=== PATIENT | male | born 1950 | race Caucasian/White ===

== ENCOUNTER 2022-02-07 13:18 | Inpatient (IN) | payer OTHER, BC ==
[2022-02-07 14:34] LABS: BASO % 0.9 % (0-2.0); EOS % 0.2 % (0-4.5); HEMATOCRIT 17.8 % (35.4-49); LYMPH % 7.9 % (8-40); MCH 24.6 pg (25.7-33.7); MCHC 30.3 g/dl (32.0-35.9); MEAN CELL VOLUME 81.4 fl (80-96); MEAN PLT VOLUME 8.6 fl (7.5-11.1); MONO % 5.9 % (3.8-10.2); NEUT % 85.1 % (42.8-82.8); RBC 2.19 M/mm3 (4.00-5.60); RDW 18.9 % (11.9-15.9); WHITE BLOOD COUNT 13.3 K/mm3 (4.0-10.0)
[2022-02-07 14:35] LABS: PLATELET COUNT 1175 10^3/uL (134-434)
[2022-02-07 14:36] LABS: HEMOGLOBIN 5.4 GM/dL (11.7-16.9)
[2022-02-07 14:59] LABS: CALCIUM 9.1 mg/dL (8.5-10.1)
[2022-02-07 15:00] LABS: ALBUMIN 3.6 g/dl (3.4-5.0); BLOOD UREA NITROGEN 57.6 mg/dL (7-18)
[2022-02-07 15:03] LABS: CREATININE 2.1 mg/dL (0.55-1.3)
[2022-02-07 15:05] LABS: BILIRUBIN,TOTAL 0.4 mg/dL (0.2-1); TOT PROT 6.4 g/dl (6.4-8.2)
[2022-02-07] MEDS ORDERED: SODIUM CHLORIDE 0.9% 500 ML INFUS.BAG IV ONE (15:42)
[2022-02-07] MEDS ORDERED: ACETAMINOPHEN 1000 MG/100 ML BAG IVPB PRN (16:15)
[2022-02-07] MEDS: DEXTROSE 5%-NORMAL SALINE 1,000 ML IV SCH (17:10)
[2022-02-07] MEDS: PANTOPRAZOLE SODIUM 40 MG VIAL IVPUSH SCH (22:05)
[2022-02-08 08:53] LABS: MCH 27.5 pg (25.7-33.7); MEAN CELL VOLUME 83.2 fl (80-96); MEAN PLT VOLUME 8.1 fl (7.5-11.1); PLATELET COUNT 842 10^3/uL (134-434); RDW 17.9 % (11.9-15.9)
[2022-02-08 09:18] LABS: HEMOGLOBIN 6.6 GM/dL (11.7-16.9)
[2022-02-08 09:24] LABS: CALCIUM 7.8 mg/dL (8.5-10.1)
[2022-02-08 09:25] LABS: BLOOD UREA NITROGEN 52.6 mg/dL (7-18); MAGNESIUM 2.6 mg/dL (1.8-2.4)
[2022-02-08 09:28] LABS: CREATININE 1.8 mg/dL (0.55-1.3)
[2022-02-08 09:29] LABS: TOT PROT 5.4 g/dl (6.4-8.2)
[2022-02-08 09:30] LABS: IRON SERUM 61 ug/dL (50-175)
[2022-02-08 09:31] LABS: TOTAL IRON BINDING CAPACITY 321 ug/dL (250-450)
[2022-02-08] MEDS: PANTOPRAZOLE SODIUM 40 MG VIAL IVPUSH SCH ×2 (10:06→22:32)
[2022-02-08 14:06] LABS: BASO % 0.7 % (0-2.0); EOS % 0.7 % (0-4.5); HEMATOCRIT 20.7 % (35.4-49); LYMPH % 10.9 % (8-40); MCH 26.9 pg (25.7-33.7); MCHC 32.5 g/dl (32.0-35.9); MEAN CELL VOLUME 82.8 fl (80-96); MEAN PLT VOLUME 8.2 fl (7.5-11.1); MONO % 9.3 % (3.8-10.2); NEUT % 78.4 % (42.8-82.8); PLATELET COUNT 905 10^3/uL (134-434)
[2022-02-08 14:23] LABS: HEMOGLOBIN 6.7 GM/dL (11.7-16.9)
[2022-02-08 20:11] LABS: BASO % 1.2 % (0-2.0); EOS % 1.4 % (0-4.5); HEMATOCRIT 25.3 % (35.4-49); LYMPH % 13.5 % (8-40); MCH 27.4 pg (25.7-33.7); MCHC 31.7 g/dl (32.0-35.9); MEAN CELL VOLUME 86.3 fl (80-96); MEAN PLT VOLUME 8.2 fl (7.5-11.1); MONO % 8.8 % (3.8-10.2); NEUT % 75.1 % (42.8-82.8); PLATELET COUNT 905 10^3/uL (134-434); RBC 2.93 M/mm3 (4.00-5.60); RDW 17.4 % (11.9-15.9); WHITE BLOOD COUNT 12.6 K/mm3 (4.0-10.0)
[2022-02-08] MEDS: DEXTROSE 5%-NORMAL SALINE 1,000 ML IV SCH ×2 (22:31→23:59)
[2022-02-08] MEDS: ROSUVASTATIN CA 5 MG TABLET PO SCH (22:32)
[2022-02-09] MEDS: PANTOPRAZOLE SODIUM 40 MG VIAL IVPUSH SCH ×2 (09:48→21:41)
[2022-02-09 12:11] VITALS: BMI 34.1
[2022-02-09] MEDS: DEXTROSE 5%-NORMAL SALINE 1,000 ML IV SCH (13:27)
[2022-02-09 14:02] LABS: BASO % 1.2 % (0-2.0); EOS % 2.6 % (0-4.5); HEMATOCRIT 24.5 % (35.4-49); LYMPH % 9.5 % (8-40); MCH 27.6 pg (25.7-33.7); MCHC 32.7 g/dl (32.0-35.9); MEAN CELL VOLUME 84.3 fl (80-96); MEAN PLT VOLUME 8.3 fl (7.5-11.1); MONO % 8.7 % (3.8-10.2); PLATELET COUNT 904 10^3/uL (134-434); RDW 17.6 % (11.9-15.9); WHITE BLOOD COUNT 12.1 K/mm3 (4.0-10.0)
[2022-02-09 14:10] LABS: INR 1.21 (0.83-1.09)
[2022-02-09 14:30] LABS: CALCIUM 8.3 mg/dL (8.5-10.1)
[2022-02-09 14:31] LABS: BLOOD UREA NITROGEN 28.6 mg/dL (7-18)
[2022-02-09 14:34] LABS: CREATININE 1.5 mg/dL (0.55-1.3)
[2022-02-09 17:40] LABS: URINE APPEARANCE CLEAR; URINE BILIRUBIN NEGATIVE (NEGATIVE); URINE COLOR YELLOW; URINE GLUCOSE (UA) NEGATIVE (NEGATIVE); URINE KETONE NEGATIVE (NEGATIVE); URINE LEUK ESTERASE NEGATIVE (NEGATIVE); URINE NITRITE NEGATIVE (NEGATIVE); URINE PROTEIN TRACE (NEGATIVE); URINE UROBILINOGEN 0.2 mg/dL (0.2-1.0)
[2022-02-09] MEDS: ARTIFICIAL TEARS (POLYVINYL ALCOHOL) OPTH DROPS OU PRN ×2 (18:43→21:41)
[2022-02-09] MEDS: ROSUVASTATIN CA 5 MG TABLET PO SCH (21:41)
[2022-02-10] MEDS: DEXTROSE 5%-NORMAL SALINE 1,000 ML IV SCH ×3 (04:02→21:49)
[2022-02-10] MEDS: PANTOPRAZOLE SODIUM 40 MG VIAL IVPUSH SCH ×2 (09:55→21:46)
[2022-02-10] MEDS: ARTIFICIAL TEARS (POLYVINYL ALCOHOL) OPTH DROPS OU PRN ×2 (09:55→22:03)
[2022-02-10 10:13] LABS: HEMATOCRIT 23.9 % (35.4-49); HEMOGLOBIN 7.6 GM/dL (11.7-16.9); MCH 27.1 pg (25.7-33.7); MCHC 31.9 g/dl (32.0-35.9); MEAN CELL VOLUME 85.1 fl (80-96); MEAN PLT VOLUME 8.4 fl (7.5-11.1); PLATELET COUNT 848 10^3/uL (134-434); RBC 2.81 M/mm3 (4.00-5.60); RDW 18.1 % (11.9-15.9); WHITE BLOOD COUNT 11.4 K/mm3 (4.0-10.0)
[2022-02-10 10:56] LABS: BLOOD UREA NITROGEN 24.2 mg/dL (7-18); CALCIUM 8.3 mg/dL (8.5-10.1); MAGNESIUM 2.7 mg/dL (1.8-2.4)
[2022-02-10 11:00] LABS: CREATININE 1.3 mg/dL (0.55-1.3)
[2022-02-10] MEDS ORDERED: PEG 3350/NA SULF BICARB CL/KCL 4000 ML SOLN.RECON PO ONE ×2 (13:00→17:00)
[2022-02-10] MEDS ORDERED: BISACODYL 5 MG TABLET.DR (FP) PO ONE ×2 (16:00→20:00)
[2022-02-10] MEDS: ROSUVASTATIN CA 5 MG TABLET PO SCH (22:00)
[2022-02-11 07:32] LABS: BASO % 0.8 % (0-2.0); EOS % 1.8 % (0-4.5); HEMATOCRIT 23.9 % (35.4-49); HEMOGLOBIN 7.9 GM/dL (11.7-16.9); LYMPH % 11.8 % (8-40); MCH 27.6 pg (25.7-33.7); MCHC 32.9 g/dl (32.0-35.9); MONO % 11.4 % (3.8-10.2); NEUT % 74.2 % (42.8-82.8); PLATELET COUNT 608 10^3/uL (134-434); RBC 2.85 M/mm3 (4.00-5.60); RDW 18.8 % (11.9-15.9); WHITE BLOOD COUNT 11.5 K/mm3 (4.0-10.0)
[2022-02-11 07:35] LABS: INR 1.28 (0.83-1.09); PROTHROMBIN TIME (PATIENT) 14.8 SEC (9.7-13.0)
[2022-02-11 07:54] LABS: CALCIUM 7.4 mg/dL (8.5-10.1)
[2022-02-11 07:55] LABS: BLOOD UREA NITROGEN 15.5 mg/dL (7-18)
[2022-02-11 07:58] LABS: CREATININE 1.2 mg/dL (0.55-1.3)
[2022-02-11] MEDS: PANTOPRAZOLE SODIUM 40 MG VIAL IVPUSH SCH ×2 (09:13→21:34)
[2022-02-11] MEDS: ARTIFICIAL TEARS (POLYVINYL ALCOHOL) OPTH DROPS OU PRN ×2 (09:13→21:34)
[2022-02-11] MEDS: DEXTROSE 5%-NORMAL SALINE 1,000 ML IV SCH ×2 (11:37→17:38)
[2022-02-11] MEDS ORDERED: ACETAMINOPHEN 325 MG TABLET (FP) PO ONE (17:30)
[2022-02-11] MEDS: ROSUVASTATIN CA 5 MG TABLET PO SCH (21:34)
[2022-02-12 06:42] LABS: CALCIUM 7.9 mg/dL (8.5-10.1)
[2022-02-12 06:43] LABS: ALBUMIN 2.8 g/dl (3.4-5.0); BLOOD UREA NITROGEN 15.2 mg/dL (7-18)
[2022-02-12 06:46] LABS: CREATININE 1.4 mg/dL (0.55-1.3)
[2022-02-12 06:47] LABS: TOT PROT 5.3 g/dl (6.4-8.2)
[2022-02-12 06:48] LABS: BILIRUBIN,TOTAL 1.1 mg/dL (0.2-1)
[2022-02-12 07:11] LABS: HEMATOCRIT 26.1 % (35.4-49); HEMOGLOBIN 8.9 GM/dL (11.7-16.9); MCH 28.8 pg (25.7-33.7); MCHC 34.1 g/dl (32.0-35.9); MEAN CELL VOLUME 84.3 fl (80-96); MEAN PLT VOLUME 8.1 fl (7.5-11.1); PLATELET COUNT 512 10^3/uL (134-434); RBC 3.09 M/mm3 (4.00-5.60); RDW 18.4 % (11.9-15.9); WHITE BLOOD COUNT 12.4 K/mm3 (4.0-10.0)
[2022-02-12] MEDS: PANTOPRAZOLE SODIUM 40 MG VIAL IVPUSH SCH ×2 (10:40→22:49)
[2022-02-12] MEDS ORDERED: IRON SUCROSE INJECTION 300 MG in SODIUM CHLORIDE 235 ML IVPB ONE (13:15)
[2022-02-12] MEDS: CLINDAMYCIN 900 MG PREMIX IVPB 900 MG/50 ML BAG IVPB SCH ×2 (19:12→22:49)
[2022-02-12] MEDS: ACETAMINOPHEN 325 MG TABLET (FP) PO PRN (20:37)
[2022-02-12] MEDS: ROSUVASTATIN CA 5 MG TABLET PO SCH (22:49)
[2022-02-12] MEDS: DEXTROSE 5%-NORMAL SALINE 1,000 ML IV SCH (22:50)
[2022-02-13] MEDS: ACETAMINOPHEN 325 MG TABLET (FP) PO PRN (02:40)
[2022-02-13] MEDS: CLINDAMYCIN 900 MG PREMIX IVPB 900 MG/50 ML BAG IVPB SCH ×2 (03:52→09:17)
[2022-02-13] MEDS: PANTOPRAZOLE SODIUM 40 MG VIAL IVPUSH SCH (09:17)
[2022-02-13 09:24] LABS: HEMATOCRIT 22.1 % (35.4-49); MCH 27.4 pg (25.7-33.7); MCHC 29.9 g/dl (32.0-35.9); MEAN PLT VOLUME 8.1 fl (7.5-11.1); PLATELET COUNT 308 10^3/uL (134-434); RBC 2.41 M/mm3 (4.00-5.60); WHITE BLOOD COUNT 6.4 K/mm3 (4.0-10.0)
[2022-02-13 09:47] LABS: MEAN CELL VOLUME 91.5 fl (80-96)
[2022-02-13 09:50] LABS: HEMOGLOBIN 6.6 GM/dL (11.7-16.9)
[2022-02-13] MEDS: DEXTROSE 5%-NORMAL SALINE 1,000 ML IV SCH ×2 (12:53→23:12)
[2022-02-13] MEDS: VANCOMYCIN/WATER FOR INJ (PEG) 1,000 MG/200 ML BAG IVPB SCH (17:15)
[2022-02-13] MEDS: ROSUVASTATIN CA 5 MG TABLET PO SCH (23:13)
[2022-02-13] MEDS: PANTOPRAZOLE 40 MG TABLET PO SCH (23:13)
[2022-02-14] MEDS ORDERED: ACETAMINOPHEN 1000 MG/100 ML BAG IVPB ONE (00:53)
[2022-02-14] MEDS: ACETAMINOPHEN 325 MG TABLET (FP) PO PRN ×3 (04:17→21:17)
[2022-02-14] MEDS: VANCOMYCIN/WATER FOR INJ (PEG) 1,000 MG/200 ML BAG IVPB SCH ×2 (07:35→16:49)
[2022-02-14 08:39] LABS: HEMOGLOBIN 8.7 GM/dL (11.7-16.9); MCHC 33.6 g/dl (32.0-35.9); MEAN CELL VOLUME 83.3 fl (80-96); MEAN PLT VOLUME 8.5 fl (7.5-11.1); PLATELET COUNT 288 10^3/uL (134-434); RBC 3.11 M/mm3 (4.00-5.60); RDW 18.1 % (11.9-15.9); WHITE BLOOD COUNT 10.4 K/mm3 (4.0-10.0)
[2022-02-14 08:57] LABS: CALCIUM 7.3 mg/dL (8.5-10.1)
[2022-02-14 09:01] LABS: CREATININE 1.5 mg/dL (0.55-1.3)
[2022-02-14] MEDS: PANTOPRAZOLE 40 MG TABLET PO SCH ×2 (09:36→21:18)
[2022-02-14] MEDS ORDERED: IRON SUCROSE INJECTION 300 MG in SODIUM CHLORIDE 235 ML IVPB ONE (12:46)
[2022-02-14] MEDS: DEXTROSE 5%-NORMAL SALINE 1,000 ML IV SCH (16:48)
[2022-02-14] MEDS: FLUTICASONE PROP 0.05% 16 GM NASAL SPRAY NS SCH (18:14)
[2022-02-14] MEDS ORDERED: HEPARIN INFUSION - 25,000 UNITS/500 ML INFUS.BAG IVPB SCH (18:30)
[2022-02-14] MEDS ORDERED: HEPARIN NA (PORCINE) 5,000 UNITS/ML 1ML VIAL IVPUSH ONE (18:45)
[2022-02-14] MEDS ORDERED: HEPARIN NA (PORCINE) 5,000 UNITS/ML 1ML VIAL IVPUSH PRN (18:45)
[2022-02-14] MEDS: HEPARIN INFUSION - 25,000 UNITS/500 ML INFUS.BAG IVPB SCH (18:54)
[2022-02-14 19:24] LABS: BASO % 0.7 % (0-2.0); EOS % 0.4 % (0-4.5); HEMATOCRIT 26.7 % (35.4-49); HEMOGLOBIN 8.7 GM/dL (11.7-16.9); LYMPH % 4.7 % (8-40); MCH 27.4 pg (25.7-33.7); MCHC 32.7 g/dl (32.0-35.9); MEAN CELL VOLUME 83.8 fl (80-96); MONO % 7.9 % (3.8-10.2); NEUT % 86.3 % (42.8-82.8); PLATELET COUNT 312 10^3/uL (134-434); RBC 3.18 M/mm3 (4.00-5.60); WHITE BLOOD COUNT 9.6 K/mm3 (4.0-10.0)
[2022-02-14 19:48] LABS: INR 1.35 (0.83-1.09); PROTHROMBIN TIME (PATIENT) 15.6 SEC (9.7-13.0)
[2022-02-14 19:50] LABS: ACTIVATED PTT 36.5 SECONDS (25.2-36.5)
[2022-02-14] MEDS: ROSUVASTATIN CA 5 MG TABLET PO SCH (21:18)
[2022-02-15] MEDS: HEPARIN NA (PORCINE) 5,000 UNITS/ML 1ML VIAL IVPUSH PRN (02:19)
[2022-02-15] MEDS: VANCOMYCIN/WATER FOR INJ (PEG) 1,000 MG/200 ML BAG IVPB SCH ×4 (04:37→18:12)
[2022-02-15 08:38] LABS: HEMATOCRIT 27.2 % (35.4-49); MCH 27.3 pg (25.7-33.7); MCHC 32.9 g/dl (32.0-35.9); MEAN CELL VOLUME 82.9 fl (80-96); MEAN PLT VOLUME 9.1 fl (7.5-11.1); PLATELET COUNT 347 10^3/uL (134-434); RBC 3.28 M/mm3 (4.00-5.60); RDW 18.3 % (11.9-15.9); WHITE BLOOD COUNT 9.6 K/mm3 (4.0-10.0)
[2022-02-15 08:55] LABS: BLOOD UREA NITROGEN 15.2 mg/dL (7-18); CALCIUM 7.4 mg/dL (8.5-10.1)
[2022-02-15 08:59] LABS: ACTIVATED PTT 53.5 SECONDS (25.2-36.5); CREATININE 1.4 mg/dL (0.55-1.3); INR 1.32 (0.83-1.09); PROTHROMBIN TIME (PATIENT) 15.2 SEC (9.7-13.0)
[2022-02-15] MEDS: FLUTICASONE PROP 0.05% 16 GM NASAL SPRAY NS SCH (09:25)
[2022-02-15] MEDS: PANTOPRAZOLE 40 MG TABLET PO SCH ×2 (09:25→22:04)
[2022-02-15] MEDS: HEPARIN INFUSION - 25,000 UNITS/500 ML INFUS.BAG IVPB SCH ×2 (15:30→18:46)
[2022-02-15 16:17] LABS: HEMATOCRIT 28.7 % (35.4-49); HEMOGLOBIN 9.4 GM/dL (11.7-16.9); MCH 27.3 pg (25.7-33.7); MCHC 32.6 g/dl (32.0-35.9); MEAN CELL VOLUME 83.8 fl (80-96); MEAN PLT VOLUME 9.7 fl (7.5-11.1); PLATELET COUNT 371 10^3/uL (134-434); RBC 3.42 M/mm3 (4.00-5.60); RDW 18.8 % (11.9-15.9); WHITE BLOOD COUNT 10.9 K/mm3 (4.0-10.0)
[2022-02-15] MEDS: ROSUVASTATIN CA 5 MG TABLET PO SCH (22:04)
[2022-02-15] MEDS: ACETAMINOPHEN 325 MG TABLET (FP) PO PRN (22:04)
[2022-02-16] MEDS: VANCOMYCIN/WATER FOR INJ (PEG) 1,000 MG/200 ML BAG IVPB SCH ×2 (05:13→15:43)
[2022-02-16] MEDS: PANTOPRAZOLE 40 MG TABLET PO SCH ×2 (09:24→21:32)
[2022-02-16] MEDS: FLUTICASONE PROP 0.05% 16 GM NASAL SPRAY NS SCH (09:24)
[2022-02-16 09:38] LABS: HEMOGLOBIN 8.9 GM/dL (11.7-16.9); MCH 27.6 pg (25.7-33.7); MEAN CELL VOLUME 83.6 fl (80-96); MEAN PLT VOLUME 8.9 fl (7.5-11.1); PLATELET COUNT 385 10^3/uL (134-434); RBC 3.23 M/mm3 (4.00-5.60); RDW 18.4 % (11.9-15.9)
[2022-02-16 10:01] LABS: CALCIUM 7.5 mg/dL (8.5-10.1)
[2022-02-16] MEDS: HEPARIN NA (PORCINE) 5,000 UNITS/ML 1ML VIAL IVPUSH PRN ×2 (10:01→18:59)
[2022-02-16 10:03] LABS: BLOOD UREA NITROGEN 13.8 mg/dL (7-18)
[2022-02-16 10:06] LABS: CREATININE 1.3 mg/dL (0.55-1.3)
[2022-02-16] MEDS: HEPARIN INFUSION - 25,000 UNITS/500 ML INFUS.BAG IVPB SCH (13:46)
[2022-02-16] MEDS ORDERED: POTASSIUM CHLORIDE TABS 20 MEQ TABLET.ER (FP) PO ONE (14:00)
[2022-02-16] MEDS: CEFAZOLIN 2 GM in DEXTROSE 5%-WATER - 50 ML IVPB SCH (21:31)
[2022-02-16] MEDS: ROSUVASTATIN CA 5 MG TABLET PO SCH (21:32)
[2022-02-17] MEDS: HEPARIN INFUSION - 25,000 UNITS/500 ML INFUS.BAG IVPB SCH ×2 (02:11→10:01)
[2022-02-17] MEDS: HEPARIN NA (PORCINE) 5,000 UNITS/ML 1ML VIAL IVPUSH PRN (02:22)
[2022-02-17] MEDS: CEFAZOLIN 2 GM in DEXTROSE 5%-WATER - 50 ML IVPB SCH ×3 (02:56→19:30)
[2022-02-17] MEDS: FLUTICASONE PROP 0.05% 16 GM NASAL SPRAY NS SCH (10:03)
[2022-02-17] MEDS: PANTOPRAZOLE 40 MG TABLET PO SCH ×2 (10:04→22:36)
[2022-02-17 11:01] LABS: HEMATOCRIT 28.8 % (35.4-49); HEMOGLOBIN 9.5 GM/dL (11.7-16.9); MCH 27.6 pg (25.7-33.7); MEAN CELL VOLUME 83.6 fl (80-96); MEAN PLT VOLUME 8.8 fl (7.5-11.1); PLATELET COUNT 438 10^3/uL (134-434); RBC 3.44 M/mm3 (4.00-5.60); RDW 19.6 % (11.9-15.9); WHITE BLOOD COUNT 9.8 K/mm3 (4.0-10.0)
[2022-02-17 11:23] LABS: MAGNESIUM 2.3 mg/dL (1.8-2.4)
[2022-02-17 11:26] LABS: CREATININE 1.2 mg/dL (0.55-1.3)
[2022-02-17] MEDS: APIXABAN 5 MG TABLET PO SCH (22:35)
[2022-02-17] MEDS: ROSUVASTATIN CA 5 MG TABLET PO SCH (22:35)
[2022-02-18] MEDS: CEFAZOLIN 2 GM in DEXTROSE 5%-WATER - 50 ML IVPB SCH ×2 (02:50→10:23)
[2022-02-18 10:23] VITALS: BP 122/67; PULSE 80; TEMP 98.2
[2022-02-18] MEDS: FLUTICASONE PROP 0.05% 16 GM NASAL SPRAY NS SCH (10:23)
[2022-02-18] MEDS: PANTOPRAZOLE 40 MG TABLET PO SCH (10:23)
[2022-02-18] MEDS: APIXABAN 5 MG TABLET PO SCH (10:23)
== END 2022-02-18 13:45 | disposition home or self-care (01) | DRG 812 ==
LOC: JER 13:18 → JERBED 15:40 → J7W 20:34
PROVIDERS: ADMIT Family Medicine; ATTEND Family Medicine
PROC: 30233N1 Transfusion of Nonautologous Red Blood Cells into Peripheral Vein, Percutaneous Approach (ICD-10-PCS; principal; 2022-02-07)
PROC: 0DJ08ZZ Inspection of Upper Intestinal Tract, Via Natural or Artificial Opening Endoscopic (ICD-10-PCS; 2022-02-11)
PROC: 0DJD8ZZ Inspection of Lower Intestinal Tract, Via Natural or Artificial Opening Endoscopic (ICD-10-PCS; 2022-02-11)
PROC: B543ZZA Ultrasonography of Right Jugular Veins, Guidance (ICD-10-PCS; 2022-02-17)
PROC: 0JH63XZ Insertion of Tunneled Vascular Access Device into Chest Subcutaneous Tissue and Fascia, Percutaneous Approach (ICD-10-PCS; 2022-02-17)
DX: D64.9 Anemia, unspecified (principal); N17.9 Acute kidney failure, unspecified; I82.621 Acute embolism and thrombosis of deep veins of right upper extremity; N13.30 Unspecified hydronephrosis; R78.81 Bacteremia; I10 Essential (primary) hypertension; I25.10 Atherosclerotic heart disease of native coronary artery without angina pectoris; I95.9 Hypotension, unspecified; E87.6 Hypokalemia; D75.839 Thrombocytosis, unspecified; E66.9 Obesity, unspecified; Z68.34 Body mass index [BMI] 34.0-34.9, adult; N28.1 Cyst of kidney, acquired; K57.90 Diverticulosis of intestine, part unspecified, without perforation or abscess without bleeding; Z98.61 Coronary angioplasty status; K64.8 Other hemorrhoids
CPT/HCPCS: 36415; 36430; 36511; 36558; 71046-TC-FY; 76775-TC; 80048; 80053; 80061; 81003; 82272; 82728; 83036; 83540; 83550; 83735; 84443; 84484; 85025; 85027; 85610; 85730; 86850; 86900; 86901; 86922; 87040; 87186; 93005; 93010; 93306-TC; 93971; 99285-25; C9803-CS; G0480; J1644; J1756; P9038; P9058; U0003; U0005

== ENCOUNTER → 2022-03-30 | Day surgery (SDC) | payer OTHER, BC | END | disposition home or self-care (01) | LOC: JRADIR 10:19 | PROVIDERS: ATTEND Family Medicine | PROC: 02PY03Z Removal of Infusion Device from Great Vessel, Open Approach (ICD-10-PCS; principal; 2022-03-30) | DX: Z45.2 Encounter for adjustment and management of vascular access device (principal) | CPT/HCPCS: 36589 ==

== ENCOUNTER 2022-08-27 15:59 | Inpatient (IN) | payer OTHER, BC ==
[2022-08-27 16:14] VITALS: BMI 33.5
[2022-08-27 18:18] LABS: BASO % 1.1 % (0-2.0); EOS % 0.2 % (0-4.5); HEMATOCRIT 21.6 % (35.4-49); LYMPH % 10.7 % (8-40); MCH 27.3 pg (25.7-33.7); MCHC 31.9 g/dl (32.0-35.9); MEAN CELL VOLUME 85.4 fl (80-96); MEAN PLT VOLUME 8.2 fl (7.5-11.1); MONO % 7.6 % (3.8-10.2); NEUT % 80.4 % (42.8-82.8); PLATELET COUNT 1023 10^3/uL (134-434); RBC 2.54 M/mm3 (4.00-5.60); RDW 15.4 % (11.9-15.9); WHITE BLOOD COUNT 14.1 K/mm3 (4.0-10.0)
[2022-08-27 18:23] LABS: HEMOGLOBIN 6.9 GM/dL (11.7-16.9)
[2022-08-27 18:31] LABS: CHLORIDE 111 mmol/L (98-107); INR 1.56 (0.83-1.09); SODIUM 139 mmol/L (136-145)
[2022-08-27 18:34] LABS: ACTIVATED PTT 30.6 SECONDS (25.2-36.5); ALBUMIN 3.1 g/dl (3.4-5.0); ANION GAP 7 MMOL/L (8-16); CALCIUM 9.3 mg/dL (8.5-10.1); CO2 21 mmol/L (21-32); GLUCOSE,RANDOM 127 mg/dL (74-106); MAGNESIUM 1.2 mg/dL (1.8-2.4)
[2022-08-27 18:37] LABS: CREATININE 1.9 mg/dL (0.55-1.3); SGOT/AST 17 U/L (15-37); SGPT/ALT 15 U/L (13-61)
[2022-08-27 18:39] LABS: BILIRUBIN,TOTAL 0.2 mg/dL (0.2-1)
[2022-08-27 18:40] LABS: ALK PHOS 35 U/L (45-117)
[2022-08-27] MEDS ORDERED: MAGNESIUM SULF 50% (8.12 MEQ/2 ML-1 GM VIAL) IVPB ONE (18:51)
[2022-08-27 18:52] LABS: BLOOD UREA NITROGEN 106.4 mg/dL (7-18)
[2022-08-27] MEDS ORDERED: SODIUM CHLORIDE 0.9% 500 ML INFUS.BAG IV ONE (18:54)
[2022-08-27] MEDS ORDERED: MAGNESIUM SULF 50% (8.12 MEQ/2 ML-1 GM VIAL) ONE (19:48)
[2022-08-28 07:15] LABS: BASO % 0.8 % (0-2.0); EOS % 1.3 % (0-4.5); HEMATOCRIT 22.6 % (35.4-49); HEMOGLOBIN 7.2 GM/dL (11.7-16.9); LYMPH % 15.7 % (8-40); MCH 28.3 pg (25.7-33.7); MEAN CELL VOLUME 88.4 fl (80-96); MEAN PLT VOLUME 8.1 fl (7.5-11.1); MONO % 9.1 % (3.8-10.2); NEUT % 73.1 % (42.8-82.8); PLATELET COUNT 778 10^3/uL (134-434); RBC 2.55 M/mm3 (4.00-5.60); RDW 15.3 % (11.9-15.9)
[2022-08-28 07:41] LABS: CALCIUM 8.4 mg/dL (8.5-10.1)
[2022-08-28 07:42] LABS: ALBUMIN 2.8 g/dl (3.4-5.0); BLOOD UREA NITROGEN 97.6 mg/dL (7-18)
[2022-08-28 07:44] LABS: CREATININE 1.7 mg/dL (0.55-1.3)
[2022-08-28 07:46] LABS: BILIRUBIN,TOTAL 0.4 mg/dL (0.2-1); TOT PROT 5.2 g/dl (6.4-8.2)
[2022-08-28] MEDS ORDERED: FUROSEMIDE 40 MG/4 ML INJECTABLE VIAL IVPUSH ONE (09:34)
[2022-08-28] MEDS ORDERED: FUROSEMIDE 40 MG/4 ML INJECTABLE VIAL ONE (11:03)
[2022-08-28] MEDS ORDERED: MAGNESIUM SULF 50% (8.12 MEQ/2 ML-1 GM VIAL) IVPB ONE (14:15)
[2022-08-28 14:16] LABS: BASO % 1.8 % (0-2.0); EOS % 1.2 % (0-4.5); HEMATOCRIT 26.2 % (35.4-49); HEMOGLOBIN 8.5 GM/dL (11.7-16.9); LYMPH % 12.4 % (8-40); MCH 27.9 pg (25.7-33.7); MCHC 32.4 g/dl (32.0-35.9); MEAN CELL VOLUME 86.3 fl (80-96); MEAN PLT VOLUME 7.7 fl (7.5-11.1); MONO % 9.6 % (3.8-10.2); PLATELET COUNT 883 10^3/uL (134-434); RBC 3.04 M/mm3 (4.00-5.60); RDW 15.1 % (11.9-15.9); WHITE BLOOD COUNT 11.7 K/mm3 (4.0-10.0)
[2022-08-28] MEDS ORDERED: MAGNESIUM 1GM/D5W - 1 GM/100 ML IVPB IVPB ONE (15:14)
[2022-08-29 07:21] LABS: BASO % 1.7 % (0-2.0); EOS % 2.7 % (0-4.5); HEMATOCRIT 23.9 % (35.4-49); HEMOGLOBIN 7.9 GM/dL (11.7-16.9); LYMPH % 16.4 % (8-40); MCH 28.3 pg (25.7-33.7); MCHC 33.2 g/dl (32.0-35.9); MEAN CELL VOLUME 85.5 fl (80-96); MEAN PLT VOLUME 8.1 fl (7.5-11.1); MONO % 11.2 % (3.8-10.2); PLATELET COUNT 810 10^3/uL (134-434); RBC 2.79 M/mm3 (4.00-5.60); RDW 15.5 % (11.9-15.9); WHITE BLOOD COUNT 10.6 K/mm3 (4.0-10.0)
[2022-08-29 07:48] LABS: ALBUMIN 2.9 g/dl (3.4-5.0); CALCIUM 8.7 mg/dL (8.5-10.1)
[2022-08-29 07:49] LABS: MAGNESIUM 2.9 mg/dL (1.8-2.4)
[2022-08-29 07:52] LABS: BILIRUBIN,TOTAL 0.5 mg/dL (0.2-1); CREATININE 1.4 mg/dL (0.55-1.3)
[2022-08-29 07:54] LABS: TOT PROT 5.5 g/dl (6.4-8.2)
[2022-08-29 07:55] LABS: BLOOD UREA NITROGEN 57.6 mg/dL (7-18)
[2022-08-29] MEDS: PANTOPRAZOLE 40 MG TABLET PO SCH (10:01)
[2022-08-29] MEDS: ACETAMINOPHEN 325 MG TABLET (FP) PO PRN (17:23)
[2022-08-30 07:41] LABS: EOS % 1.6 % (0-4.5); HEMATOCRIT 24.7 % (35.4-49); HEMOGLOBIN 8.1 GM/dL (11.7-16.9); LYMPH % 14.4 % (8-40); MCH 28.5 pg (25.7-33.7); MCHC 32.8 g/dl (32.0-35.9); MEAN CELL VOLUME 86.9 fl (80-96); MEAN PLT VOLUME 8.1 fl (7.5-11.1); MONO % 11.8 % (3.8-10.2); NEUT % 71.2 % (42.8-82.8); PLATELET COUNT 889 10^3/uL (134-434); RBC 2.84 M/mm3 (4.00-5.60); RDW 15.5 % (11.9-15.9); WHITE BLOOD COUNT 11.7 K/mm3 (4.0-10.0)
[2022-08-30] MEDS: PANTOPRAZOLE 40 MG TABLET PO SCH (09:49)
[2022-08-31 07:16] LABS: BASO % 1.2 % (0-2.0); EOS % 1.8 % (0-4.5); HEMATOCRIT 25.7 % (35.4-49); HEMOGLOBIN 8.4 GM/dL (11.7-16.9); LYMPH % 12.2 % (8-40); MCH 27.8 pg (25.7-33.7); MCHC 32.5 g/dl (32.0-35.9); MEAN CELL VOLUME 85.5 fl (80-96); MONO % 11.6 % (3.8-10.2); NEUT % 73.2 % (42.8-82.8); PLATELET COUNT 973 10^3/uL (134-434); RBC 3.01 M/mm3 (4.00-5.60); RDW 16.4 % (11.9-15.9); WHITE BLOOD COUNT 10.2 K/mm3 (4.0-10.0)
[2022-08-31 07:39] LABS: CALCIUM 8.6 mg/dL (8.5-10.1)
[2022-08-31 07:40] LABS: ALBUMIN 2.7 g/dl (3.4-5.0)
[2022-08-31 07:42] LABS: CREATININE 1.2 mg/dL (0.55-1.3)
[2022-08-31 07:44] LABS: BILIRUBIN,TOTAL 0.8 mg/dL (0.2-1); TOT PROT 5.5 g/dl (6.4-8.2)
[2022-08-31 08:56] LABS: BLOOD UREA NITROGEN 26.7 mg/dL (7-18)
[2022-08-31] MEDS: PANTOPRAZOLE 40 MG TABLET PO SCH (12:12)
[2022-09-01 07:31] LABS: BASO % 1.2 % (0-2.0); EOS % 2.3 % (0-4.5); HEMATOCRIT 24.8 % (35.4-49); HEMOGLOBIN 8.3 GM/dL (11.7-16.9); LYMPH % 14.6 % (8-40); MCH 28.4 pg (25.7-33.7); MCHC 33.5 g/dl (32.0-35.9); MEAN CELL VOLUME 84.8 fl (80-96); MEAN PLT VOLUME 7.9 fl (7.5-11.1); MONO % 10.7 % (3.8-10.2); NEUT % 71.2 % (42.8-82.8); PLATELET COUNT 854 10^3/uL (134-434); RBC 2.92 M/mm3 (4.00-5.60); RDW 16.1 % (11.9-15.9); WHITE BLOOD COUNT 9.4 K/mm3 (4.0-10.0)
[2022-09-01] MEDS ORDERED: ARTIFICIAL TEARS (POLYVINYL ALCOHOL) OPTH DROPS OU PRN (08:38)
[2022-09-01] MEDS: PANTOPRAZOLE 40 MG TABLET PO SCH ×2 (09:23→21:58)
[2022-09-01] MEDS: CLOPIDOGREL BISULFATE 75 MG TABLET (FP) PO SCH (09:23)
[2022-09-01] MEDS: NEBIVOLOL 5 MG TABLET (FP) PO SCH (09:27)
[2022-09-01] MEDS: MAG HYDROX/AL HYDROX/SIMETH 30 ML UNIT-DOSE CUP PO SCH ×3 (11:00→21:59)
[2022-09-01] MEDS: ROSUVASTATIN CA 5 MG TABLET PO SCH (21:58)
[2022-09-02] MEDS: MAG HYDROX/AL HYDROX/SIMETH 30 ML UNIT-DOSE CUP PO SCH ×4 (06:56→21:49)
[2022-09-02 08:05] LABS: BASO % 1.9 % (0-2.0); HEMATOCRIT 27.2 % (35.4-49); HEMOGLOBIN 8.9 GM/dL (11.7-16.9); LYMPH % 13.8 % (8-40); MCH 27.8 pg (25.7-33.7); MCHC 32.7 g/dl (32.0-35.9); MEAN PLT VOLUME 7.9 fl (7.5-11.1); MONO % 9.2 % (3.8-10.2); NEUT % 72.1 % (42.8-82.8); PLATELET COUNT 1015 10^3/uL (134-434); RDW 16.2 % (11.9-15.9); RETICULOCYTES 5.36 % (0.5-1.5)
[2022-09-02 08:30] LABS: BLOOD UREA NITROGEN 30.6 mg/dL (7-18)
[2022-09-02 08:32] LABS: CREATININE 1.5 mg/dL (0.55-1.3)
[2022-09-02] MEDS: PANTOPRAZOLE 40 MG TABLET PO SCH ×2 (09:33→21:49)
[2022-09-02] MEDS: NEBIVOLOL 5 MG TABLET (FP) PO SCH (09:33)
[2022-09-02] MEDS: CLOPIDOGREL BISULFATE 75 MG TABLET (FP) PO SCH (09:34)
[2022-09-02 15:37] VITALS: RESP 18
[2022-09-02] MEDS: ACETAMINOPHEN 325 MG TABLET (FP) PO PRN (15:47)
[2022-09-02] MEDS: ROSUVASTATIN CA 5 MG TABLET PO SCH (21:49)
[2022-09-03] MEDS: MAG HYDROX/AL HYDROX/SIMETH 30 ML UNIT-DOSE CUP PO SCH (05:26)
[2022-09-03] MEDS ORDERED: ACETAMINOPHEN 325 MG TABLET (FP) PO PRN (06:33)
[2022-09-03] MEDS ORDERED: ARTIFICIAL TEARS (POLYVINYL ALCOHOL) OPTH DROPS OU PRN (06:33)
[2022-09-03] MEDS ORDERED: PANTOPRAZOLE 40 MG TABLET PO SCH (10:00)
[2022-09-03] MEDS ORDERED: CLOPIDOGREL BISULFATE 75 MG TABLET (FP) PO SCH (10:00)
[2022-09-03] MEDS ORDERED: NEBIVOLOL 5 MG TABLET (FP) PO SCH (10:00)
[2022-09-03] MEDS ORDERED: MAG HYDROX/AL HYDROX/SIMETH 30 ML UNIT-DOSE CUP PO SCH (10:15)
[2022-09-03 12:24] LABS: EOS % 2.8 % (0-4.5); HEMATOCRIT 27.6 % (35.4-49); LYMPH % 11.8 % (8-40); MCH 27.9 pg (25.7-33.7); MCHC 32.6 g/dl (32.0-35.9); MEAN CELL VOLUME 85.5 fl (80-96); MEAN PLT VOLUME 7.9 fl (7.5-11.1); NEUT % 74.4 % (42.8-82.8); RBC 3.23 M/mm3 (4.00-5.60); RDW 16.2 % (11.9-15.9); WHITE BLOOD COUNT 12.2 K/mm3 (4.0-10.0)
[2022-09-03 12:32] LABS: PLATELET COUNT 1133 10^3/uL (134-434)
[2022-09-03 14:31] LABS: BLOOD UREA NITROGEN 26.4 mg/dL (7-18); CREATININE 1.4 mg/dL (0.55-1.3); MAGNESIUM 2.9 mg/dL (1.8-2.4)
[2022-09-03 14:36] VITALS: BP 126/61; PULSE 63; TEMP 98.4
[2022-09-03] MEDS ORDERED: ROSUVASTATIN CA 5 MG TABLET PO SCH (22:00)
== END 2022-09-03 16:34 | disposition home or self-care (01) | DRG 378 ==
LOC: JER 15:59 → INTOOBSV 18:26 → JERBED 18:26 → UNDOADMOB 18:26 → JERBED 08-28 17:16 → J4W 08-28 18:28 → JERBED 08-28 18:28 → J4W 08-28 18:28 → OBSVTOIN 08-31 10:56 → J8W 09-02 20:52
PROVIDERS: ADMIT Internal Medicine; ATTEND Family Medicine
PROC: 30233N1 Transfusion of Nonautologous Red Blood Cells into Peripheral Vein, Percutaneous Approach (ICD-10-PCS; 2022-08-28)
PROC: 0DB68ZX Excision of Stomach, Via Natural or Artificial Opening Endoscopic, Diagnostic (ICD-10-PCS; principal; 2022-08-31 13:45)
DX: K25.0 Acute gastric ulcer with hemorrhage (principal); D62 Acute posthemorrhagic anemia; N17.9 Acute kidney failure, unspecified; I25.10 Atherosclerotic heart disease of native coronary artery without angina pectoris; I10 Essential (primary) hypertension; Z86.718 Personal history of other venous thrombosis and embolism; E78.5 Hyperlipidemia, unspecified; R19.5 Other fecal abnormalities; E87.5 Hyperkalemia; E83.42 Hypomagnesemia; D75.839 Thrombocytosis, unspecified; Z95.5 Presence of coronary angioplasty implant and graft; K44.9 Diaphragmatic hernia without obstruction or gangrene
CPT/HCPCS: 0241U-QW; 36415; 36430; 71045-TC-FY; 76775-TC; 80048; 80053; 82272; 82728; 83540; 83550; 83735; 84484; 85025; 85045; 85610; 85730; 86850; 86870; 86900; 86901; 86902; 86922; 88305-TC; 88341-TC; 93005; 93010; 99285-25; G0378; P9058

== ENCOUNTER 2022-11-03 04:44 | Day surgery (SDC) | payer OTHER, BC ==
[2022-11-02 13:35] VITALS: BMI 31.5
[2022-11-03 14:55] VITALS: TEMP 97
[2022-11-03 15:51] VITALS: BP 146/79; PULSE 70; RESP 19
== END 2022-11-03 15:45 | disposition home or self-care (01) ==
LOC: JASU-ENDO 04:44
PROVIDERS: ATTEND Internal Medicine Gastroenterology
PROC: 0DB78ZX Excision of Stomach, Pylorus, Via Natural or Artificial Opening Endoscopic, Diagnostic (ICD-10-PCS; 2022-11-03)
PROC: 0DB68ZX Excision of Stomach, Via Natural or Artificial Opening Endoscopic, Diagnostic (ICD-10-PCS; 2022-11-03)
PROC: 0DB48ZX Excision of Esophagogastric Junction, Via Natural or Artificial Opening Endoscopic, Diagnostic (ICD-10-PCS; principal; 2022-11-03 13:00)
DX: K25.9 Gastric ulcer, unspecified as acute or chronic, without hemorrhage or perforation (principal); K21.00 Gastro-esophageal reflux disease with esophagitis, without bleeding; K29.50 Unspecified chronic gastritis without bleeding; I10 Essential (primary) hypertension
CPT/HCPCS: 88305-TC; 88341-TC; 88342-TC

== ENCOUNTER 2023-03-09 04:25 | Day surgery (SDC) | payer OTHER, BC ==
[2023-03-05 13:34] VITALS: BMI 30.9
[2023-03-09 09:35] VITALS: TEMP 97.7
[2023-03-09 10:00] VITALS: BP 128/71
[2023-03-09 10:19] VITALS: PULSE 63; RESP 20
== END 2023-03-09 10:19 | disposition home or self-care (01) ==
LOC: JASU-ENDO 04:25
PROVIDERS: ATTEND Internal Medicine Gastroenterology
PROC: 0DBL8ZX Excision of Transverse Colon, Via Natural or Artificial Opening Endoscopic, Diagnostic (ICD-10-PCS; 2023-03-09)
PROC: 0DB48ZX Excision of Esophagogastric Junction, Via Natural or Artificial Opening Endoscopic, Diagnostic (ICD-10-PCS; 2023-03-09)
PROC: 0DB78ZX Excision of Stomach, Pylorus, Via Natural or Artificial Opening Endoscopic, Diagnostic (ICD-10-PCS; 2023-03-09)
PROC: 0DB68ZX Excision of Stomach, Via Natural or Artificial Opening Endoscopic, Diagnostic (ICD-10-PCS; 2023-03-09)
PROC: 0DBM8ZX Excision of Descending Colon, Via Natural or Artificial Opening Endoscopic, Diagnostic (ICD-10-PCS; 2023-03-09)
PROC: 0DBL8ZX Excision of Transverse Colon, Via Natural or Artificial Opening Endoscopic, Diagnostic (ICD-10-PCS; 2023-03-09)
PROC: 0DB48ZX Excision of Esophagogastric Junction, Via Natural or Artificial Opening Endoscopic, Diagnostic (ICD-10-PCS; 2023-03-09)
PROC: 0DB78ZX Excision of Stomach, Pylorus, Via Natural or Artificial Opening Endoscopic, Diagnostic (ICD-10-PCS; 2023-03-09)
PROC: 0DB68ZX Excision of Stomach, Via Natural or Artificial Opening Endoscopic, Diagnostic (ICD-10-PCS; 2023-03-09)
PROC: 0DBM8ZX Excision of Descending Colon, Via Natural or Artificial Opening Endoscopic, Diagnostic (ICD-10-PCS; principal; 2023-03-09 08:45)
DX: Z12.11 Encounter for screening for malignant neoplasm of colon (principal); D12.3 Benign neoplasm of transverse colon; D12.4 Benign neoplasm of descending colon; K57.30 Diverticulosis of large intestine without perforation or abscess without bleeding; K20.90 Esophagitis, unspecified without bleeding; K31.7 Polyp of stomach and duodenum; K64.8 Other hemorrhoids; Z87.11 Personal history of peptic ulcer disease; I10 Essential (primary) hypertension
CPT/HCPCS: 88305-TC; 88342-TC

== ENCOUNTER 2024-11-15 11:14 | Inpatient (IN) | payer OTHER, BC ==
[2024-11-15] MEDS ORDERED: ONDANSETRON 4 MG/2 ML VIAL ONE (11:43)
[2024-11-15] MEDS ORDERED: PANTOPRAZOLE SODIUM 40 MG VIAL ONE (11:44)
[2024-11-15 12:00] LABS: HEMOGLOBIN 14.8 GM/dL (11.7-16.9); MCH 28.9 pg (25.7-33.7); MCHC 31.4 g/dl (32.0-35.9); MEAN PLT VOLUME 8.4 fl (7.5-11.1); RBC 5.11 M/mm3 (4.00-5.60); RDW 14.7 % (11.9-15.9); WHITE BLOOD COUNT 21.5 K/mm3 (4.0-10.0)
[2024-11-15] MEDS: SODIUM CHLORIDE 0.9% 1000 ML INFUS.BAG IV ONE ×2 (12:01→12:36)
[2024-11-15] MEDS: ONDANSETRON 4 MG/2 ML VIAL IVPUSH ONE (12:02)
[2024-11-15] MEDS: PANTOPRAZOLE SODIUM 40 MG VIAL IVPUSH ONE (12:02)
[2024-11-15 12:05] LABS: PLATELET COUNT 1124 10^3/uL (134-434)
[2024-11-15 12:16] LABS: INR 1.04 (0.83-1.09)
[2024-11-15 12:19] LABS: ACTIVATED PTT 27.4 SECONDS (25.2-36.5)
[2024-11-15 12:23] LABS: LACTIC ACID 5.4 mmol/L (0.4-2.0)
[2024-11-15 12:27] LABS: CHLORIDE 107 mmol/L (98-107); SODIUM 138 mmol/L (136-145)
[2024-11-15 12:29] LABS: CALCIUM 9.2 mg/dL (8.5-10.1); GLUCOSE,RANDOM 222 mg/dL (74-106)
[2024-11-15 12:30] LABS: ALBUMIN 3.3 g/dl (3.4-5.0); BLOOD UREA NITROGEN 49.1 mg/dL (7-18); CO2 21 mmol/L (21-32); MAGNESIUM 2.2 mg/dL (1.8-2.4)
[2024-11-15 12:33] LABS: CREATININE 1.6 mg/dL (0.55-1.3); SGOT/AST 39 U/L (15-37); SGPT/ALT 20 U/L (13-61)
[2024-11-15 12:34] LABS: ANION GAP 11 mmol/L (4-13); BILIRUBIN,TOTAL 0.6 mg/dL (0.2-1); POTASSIUM 6.7 mmol/L (3.5-5.1); TOT PROT 6.5 g/dl (6.4-8.2)
[2024-11-15 12:36] LABS: ALK PHOS 55 U/L (45-117)
[2024-11-15] MEDS ORDERED: PIPERACILLIN/TAZOB 3.375 GM 3.375 GM/50 ML BAG IVPB ONE ×2 (12:36→12:50)
[2024-11-15] MEDS: PIPERACILLIN/TAZOB 3.375 GM 3.375 GM in DEXTROSE 5%-WATER - 50 ML IVPB ONE (12:52)
[2024-11-15] MEDS: PANTOPRAZOLE SODIUM 80 MG in SODIUM CHLORIDE 100 ML IVPB SCH ×2 (12:52→22:04)
[2024-11-15 12:59] LABS: ANISOCYTOSIS 0; MACROCYTOSIS 1+
[2024-11-15 15:01] LABS: MCH 29.3 pg (25.7-33.7); MCHC 31.6 g/dl (32.0-35.9); MEAN PLT VOLUME 7.7 fl (7.5-11.1); PLATELET COUNT 971 10^3/uL (134-434); RBC 4.09 M/mm3 (4.00-5.60); RDW 14.1 % (11.9-15.9); WHITE BLOOD COUNT 22.2 K/mm3 (4.0-10.0)
[2024-11-15 15:20] LABS: CHLORIDE 112 mmol/L (98-107); SODIUM 143 mmol/L (136-145)
[2024-11-15 15:22] LABS: POTASSIUM 6.3 mmol/L (3.5-5.1)
[2024-11-15 15:23] LABS: ALBUMIN 2.8 g/dl (3.4-5.0); ANION GAP 8 mmol/L (4-13); BLOOD UREA NITROGEN 53.2 mg/dL (7-18); CO2 23 mmol/L (21-32); GLUCOSE,RANDOM 146 mg/dL (74-106)
[2024-11-15 15:26] LABS: CREATININE 1.3 mg/dL (0.55-1.3)
[2024-11-15 15:27] LABS: SGOT/AST 8 U/L (15-37); SGPT/ALT 15 U/L (13-61)
[2024-11-15 15:28] LABS: BILIRUBIN,TOTAL 0.7 mg/dL (0.2-1); TOT PROT 5.2 g/dl (6.4-8.2)
[2024-11-15 15:29] LABS: ALK PHOS 45 U/L (45-117)
[2024-11-15 15:54] LABS: ANISOCYTOSIS 0; MACROCYTOSIS 0
[2024-11-15 17:04] LABS: PH,URINE 5.5 (5.0-8.0); URINE APPEARANCE CLEAR; URINE BILIRUBIN NEGATIVE (NEGATIVE); URINE COLOR YELLOW; URINE GLUCOSE (UA) TRACE (NEGATIVE); URINE KETONE TRACE (NEGATIVE); URINE LEUK ESTERASE NEGATIVE (NEGATIVE); URINE NITRITE NEGATIVE (NEGATIVE); URINE PROTEIN NEGATIVE (NEGATIVE); URINE UROBILINOGEN 0.2 mg/dL (0.2-1.0)
[2024-11-15 17:06] VITALS: BMI 35.3
[2024-11-15] MEDS: LACTATED RINGERS SOLUTION 1,000 ML/1,000 ML INFUS.BAG IV STA (17:45)
[2024-11-15] MEDS: DEXTROSE 50%-WATER 25 GM/50 ML DISP.SYRIN IVPUSH ONE (17:48)
[2024-11-15] MEDS: hydrALAZINE HCL 20 MG/ML VIAL IVPUSH ONE (17:48)
[2024-11-15] MEDS: ONDANSETRON 4 MG/2 ML VIAL IVPUSH PRN (17:48)
[2024-11-15] MEDS: INSULIN REGULAR HUMAN 100 UNITS/ML *VIAL IVPUSH ONE (17:49)
[2024-11-15] MEDS ORDERED: PIPERACILLIN/TAZOB 4.5 GM 4.5 GM/100 ML BAG IVPB SCH (18:00)
[2024-11-15] MEDS ORDERED: PIPERACILLIN/TAZOB 4.5 GM 4.5 GM in DEXTROSE 5%-WATER 100 ML IVPB SCH (18:00)
[2024-11-15] MEDS: PIPERACILLIN/TAZOB 4.5 GM 4.5 GM/100 ML BAG IVPB SCH (18:15)
[2024-11-15] MEDS: OXYMETAZOLINE 0.05% NASAL SOLUTION 15 ML BOTTLE NS PRN (18:15)
[2024-11-15 20:11] LABS: URINE APPEARANCE CLEAR; URINE BILIRUBIN NEGATIVE (NEGATIVE); URINE COLOR YELLOW; URINE GLUCOSE (UA) NEGATIVE (NEGATIVE); URINE KETONE NEGATIVE (NEGATIVE); URINE PROTEIN NEGATIVE (NEGATIVE); URINE UROBILINOGEN 0.2 mg/dL (0.2-1.0)
[2024-11-15 20:12] LABS: URINE LEUK ESTERASE NEGATIVE (NEGATIVE); URINE NITRITE NEGATIVE (NEGATIVE)
[2024-11-15] MEDS: LACTATED RINGERS SOLUTION 1,000 ML/1,000 ML INFUS.BAG IV SCH (21:12)
[2024-11-15] MEDS: CHLORHEXIDINE GLUCONATE 4% CLEANSER FOR DECOLONIZATION TP SCH (21:12)
[2024-11-15] MEDS: MUPIROCIN 2% TOPICAL OINTMENT FOR DECOLONIZATION NS SCH (21:12)
[2024-11-15 21:54] LABS: BASO % 0.2 % (0-2.0); HEMATOCRIT 36.6 % (35.4-49); HEMOGLOBIN 11.9 GM/dL (11.7-16.9); LYMPH % 3.7 % (8-40); MCH 29.3 pg (25.7-33.7); MCHC 32.4 g/dl (32.0-35.9); MEAN CELL VOLUME 90.6 fl (80-96); MEAN PLT VOLUME 7.8 fl (7.5-11.1); MONO % 8.7 % (3.8-10.2); NEUT % 87.4 % (42.8-82.8); PLATELET COUNT 833 10^3/uL (134-434); RBC 4.04 M/mm3 (4.00-5.60); RDW 14.5 % (11.9-15.9); WHITE BLOOD COUNT 19.4 K/mm3 (4.0-10.0)
[2024-11-16] MEDS: LACTATED RINGERS SOLUTION 1,000 ML/1,000 ML INFUS.BAG IV SCH (06:40)
[2024-11-16 07:44] LABS: BASO % 0.5 % (0-2.0); HEMATOCRIT 31.3 % (35.4-49); HEMOGLOBIN 9.9 GM/dL (11.7-16.9); LYMPH % 7.6 % (8-40); MCHC 31.7 g/dl (32.0-35.9); MEAN CELL VOLUME 91.5 fl (80-96); MEAN PLT VOLUME 8.1 fl (7.5-11.1); MONO % 9.2 % (3.8-10.2); NEUT % 82.7 % (42.8-82.8); PLATELET COUNT 752 10^3/uL (134-434); RBC 3.42 M/mm3 (4.00-5.60); RDW 14.3 % (11.9-15.9); WHITE BLOOD COUNT 17.2 K/mm3 (4.0-10.0)
[2024-11-16 08:04] LABS: POTASSIUM 5.1 mmol/L (3.5-5.1)
[2024-11-16 08:08] LABS: CALCIUM 7.9 mg/dL (8.5-10.1)
[2024-11-16 08:09] LABS: ALBUMIN 2.7 g/dl (3.4-5.0); BLOOD UREA NITROGEN 64.5 mg/dL (7-18); MAGNESIUM 1.8 mg/dL (1.8-2.4)
[2024-11-16 08:12] LABS: CREATININE 1.2 mg/dL (0.55-1.3)
[2024-11-16 08:13] LABS: BILIRUBIN,TOTAL 0.4 mg/dL (0.2-1); PHOSPHOROUS 2.4 mg/dL (2.5-4.9); TOT PROT 4.8 g/dl (6.4-8.2)
[2024-11-16] MEDS: ERYTHROMYCIN INJECTION - 250 MG in SODIUM CHLORIDE 250 ML IVPB ONE (10:43)
[2024-11-16] MEDS ORDERED: ERYTHROMYCIN *INJECTION* 500 MG VIAL IVPB ONE ×2 (11:30→18:36)
[2024-11-16 16:59] LABS: BASO % 0.6 % (0-2.0); EOS % 0.1 % (0-4.5); HEMATOCRIT 25.8 % (35.4-49); HEMOGLOBIN 8.4 GM/dL (11.7-16.9); LYMPH % 12.7 % (8-40); MCH 29.9 pg (25.7-33.7); MCHC 32.6 g/dl (32.0-35.9); MEAN CELL VOLUME 91.7 fl (80-96); MEAN PLT VOLUME 7.5 fl (7.5-11.1); MONO % 8.5 % (3.8-10.2); NEUT % 78.1 % (42.8-82.8); PLATELET COUNT 654 10^3/uL (134-434); RBC 2.82 M/mm3 (4.00-5.60); RDW 14.6 % (11.9-15.9); WHITE BLOOD COUNT 13.6 K/mm3 (4.0-10.0)
[2024-11-16] MEDS ORDERED: OXYMETAZOLINE 0.05% NASAL SOLUTION 15 ML BOTTLE NS PRN (18:36)
[2024-11-16] MEDS ORDERED: MUPIROCIN 2% TOPICAL OINTMENT FOR DECOLONIZATION NS SCH (22:00)
[2024-11-16] MEDS ORDERED: CHLORHEXIDINE GLUCONATE 4% CLEANSER FOR DECOLONIZATION TP SCH (22:00)
[2024-11-17] MEDS: PIPERACILLIN/TAZOB 4.5 GM 4.5 GM/100 ML BAG IVPB SCH (04:10)
[2024-11-17] MEDS: PANTOPRAZOLE SODIUM 80 MG in SODIUM CHLORIDE 100 ML IVPB SCH (05:33)
[2024-11-17 08:49] LABS: MCH 29.8 pg (25.7-33.7); MCHC 32.5 g/dl (32.0-35.9); MEAN CELL VOLUME 91.7 fl (80-96); MEAN PLT VOLUME 7.9 fl (7.5-11.1); PLATELET COUNT 619 10^3/uL (134-434); RBC 2.29 M/mm3 (4.00-5.60); RDW 14.4 % (11.9-15.9); WHITE BLOOD COUNT 10.6 K/mm3 (4.0-10.0)
[2024-11-17 08:53] LABS: EOS % 0.8 % (0-4.5); HEMATOCRIT 20.8 % (35.4-49); LYMPH % 13.1 % (8-40); MCH 30.2 pg (25.7-33.7); MCHC 33.5 g/dl (32.0-35.9); MEAN CELL VOLUME 90.2 fl (80-96); MEAN PLT VOLUME 7.8 fl (7.5-11.1); NEUT % 77.1 % (42.8-82.8); PLATELET COUNT 598 10^3/uL (134-434); RBC 2.31 M/mm3 (4.00-5.60); RDW 14.4 % (11.9-15.9); WHITE BLOOD COUNT 10.6 K/mm3 (4.0-10.0)
[2024-11-17 09:06] LABS: HEMOGLOBIN 6.8 GM/dL (11.7-16.9)
[2024-11-17 09:11] LABS: POTASSIUM 4.3 mmol/L (3.5-5.1)
[2024-11-17 09:19] LABS: ALBUMIN 2.6 g/dl (3.4-5.0)
[2024-11-17 09:20] LABS: BLOOD UREA NITROGEN 49.6 mg/dL (7-18)
[2024-11-17 09:23] LABS: CREATININE 1.2 mg/dL (0.55-1.3); PHOSPHOROUS 2.1 mg/dL (2.5-4.9)
[2024-11-17 09:24] LABS: BILIRUBIN,TOTAL 0.3 mg/dL (0.2-1); TOT PROT 4.7 g/dl (6.4-8.2)
[2024-11-17] MEDS: PIPERACILLIN/TAZOB 3.375 GM 50 ML IVPB SCH (10:24)
[2024-11-17] MEDS: ONDANSETRON 4 MG/2 ML VIAL IVPUSH PRN (10:24)
[2024-11-17 14:20] VITALS: RESP 18
[2024-11-18] MEDS: LACTATED RINGERS SOLUTION 1,000 ML/1,000 ML INFUS.BAG IV SCH (09:59)
[2024-11-18 10:23] LABS: BASO % 1.2 % (0-2.0); EOS % 2.3 % (0-4.5); HEMATOCRIT 17.8 % (35.4-49); LYMPH % 15.2 % (8-40); MCH 30.4 pg (25.7-33.7); MCHC 34.4 g/dl (32.0-35.9); MEAN CELL VOLUME 88.5 fl (80-96); MEAN PLT VOLUME 7.9 fl (7.5-11.1); MONO % 7.6 % (3.8-10.2); NEUT % 73.7 % (42.8-82.8); PLATELET COUNT 507 10^3/uL (134-434); RBC 2.01 M/mm3 (4.00-5.60); RDW 15.2 % (11.9-15.9)
[2024-11-18 10:31] LABS: HEMOGLOBIN 6.1 GM/dL (11.7-16.9)
[2024-11-18 10:34] LABS: POTASSIUM 3.9 mmol/L (3.5-5.1)
[2024-11-18 10:36] LABS: ALBUMIN 2.6 g/dl (3.4-5.0); BLOOD UREA NITROGEN 32.7 mg/dL (7-18); CALCIUM 7.8 mg/dL (8.5-10.1)
[2024-11-18 10:37] LABS: POTASSIUM 3.9 mmol/L (3.5-5.1)
[2024-11-18 10:38] LABS: CHOLESTEROL 91 mg/dL (50-200)
[2024-11-18 10:39] LABS: CREATININE 1.2 mg/dL (0.55-1.3)
[2024-11-18 10:39] LABS: CALCIUM 7.7 mg/dL (8.5-10.1)
[2024-11-18 10:40] LABS: ALBUMIN 2.5 g/dl (3.4-5.0); BLOOD UREA NITROGEN 33.6 mg/dL (7-18)
[2024-11-18 10:40] LABS: BILIRUBIN,TOTAL 0.4 mg/dL (0.2-1); LDL CHOLESTEROL (ONLY SJRH) 43 mg/dL (5-100); MAGNESIUM 1.9 mg/dL (1.8-2.4); TOT PROT 4.6 g/dl (6.4-8.2)
[2024-11-18 10:41] LABS: HDL CHOLESTEROL 29 mg/dL (40-60)
[2024-11-18 10:43] LABS: CREATININE 1.2 mg/dL (0.55-1.3)
[2024-11-18 10:44] LABS: BILIRUBIN,TOTAL 0.5 mg/dL (0.2-1); TOT PROT 4.6 g/dl (6.4-8.2)
[2024-11-18] MEDS: NEBIVOLOL 5 MG TABLET (FP) PO SCH (10:53)
[2024-11-18] MEDS: PIPERACILLIN/TAZOB 4.5 GM 4.5 GM in DEXTROSE 5%-WATER 100 ML IVPB SCH (13:43)
[2024-11-18] MEDS: FUROSEMIDE 40 MG/4 ML INJECTABLE VIAL IVPUSH ONE (15:52)
[2024-11-18] MEDS: PANTOPRAZOLE SODIUM 160 MG in SODIUM CHLORIDE 290 ML IVPB SCH (20:03)
[2024-11-19 08:56] LABS: BASO % 1.2 % (0-2.0); EOS % 3.4 % (0-4.5); HEMATOCRIT 19.8 % (35.4-49); HEMOGLOBIN 7.1 GM/dL (11.7-16.9); LYMPH % 14.2 % (8-40); MCH 31.2 pg (25.7-33.7); MCHC 35.7 g/dl (32.0-35.9); MEAN CELL VOLUME 87.6 fl (80-96); MEAN PLT VOLUME 8.1 fl (7.5-11.1); MONO % 8.3 % (3.8-10.2); NEUT % 72.9 % (42.8-82.8); PLATELET COUNT 531 10^3/uL (134-434); RBC 2.27 M/mm3 (4.00-5.60); RDW 14.8 % (11.9-15.9); WHITE BLOOD COUNT 9.5 K/mm3 (4.0-10.0)
[2024-11-19 09:05] LABS: POTASSIUM 3.6 mmol/L (3.5-5.1)
[2024-11-19 09:12] LABS: CREATININE 1.2 mg/dL (0.55-1.3)
[2024-11-19 09:14] LABS: BILIRUBIN,TOTAL 0.9 mg/dL (0.2-1); BLOOD UREA NITROGEN 25.1 mg/dL (7-18); CALCIUM 7.7 mg/dL (8.5-10.1); TOT PROT 4.8 g/dl (6.4-8.2)
[2024-11-19 09:16] LABS: ALBUMIN 2.5 g/dl (3.4-5.0)
[2024-11-19] MEDS: FUROSEMIDE 40 MG/4 ML INJECTABLE VIAL IVPUSH SCH (10:23)
[2024-11-19] MEDS: PANTOPRAZOLE 40 MG TABLET PO SCH (21:15)
[2024-11-20 08:34] LABS: HEMATOCRIT 27.5 % (35.4-49); HEMOGLOBIN 9.4 GM/dL (11.7-16.9); MCH 29.8 pg (25.7-33.7); MCHC 34.2 g/dl (32.0-35.9); MEAN CELL VOLUME 87.2 fl (80-96); PLATELET COUNT 562 10^3/uL (134-434); RBC 3.15 M/mm3 (4.00-5.60); RDW 16.1 % (11.9-15.9); RETICULOCYTES 4.81 % (0.5-1.5)
[2024-11-20 08:54] LABS: POTASSIUM 3.9 mmol/L (3.5-5.1)
[2024-11-20 08:57] LABS: BLOOD UREA NITROGEN 18.5 mg/dL (7-18); CALCIUM 8.2 mg/dL (8.5-10.1)
[2024-11-20 09:01] LABS: CREATININE 1.1 mg/dL (0.55-1.3)
[2024-11-20 09:32] LABS: ALBUMIN 2.6 g/dl (3.4-5.0)
[2024-11-20 09:35] LABS: BILIRUBIN,DIRECT 0.3 mg/dL (0.0-0.2)
[2024-11-20 09:42] LABS: ANISOCYTOSIS 0; MACROCYTOSIS 0
[2024-11-21 06:45] VITALS: PULSE 67
[2024-11-21 08:16] LABS: HEMATOCRIT 28.5 % (35.4-49); HEMOGLOBIN 9.3 GM/dL (11.7-16.9); MCHC 32.5 g/dl (32.0-35.9); MEAN CELL VOLUME 89.1 fl (80-96); MEAN PLT VOLUME 8.1 fl (7.5-11.1); PLATELET COUNT 565 10^3/uL (134-434); RBC 3.19 M/mm3 (4.00-5.60); RDW 16.2 % (11.9-15.9)
[2024-11-21 08:28] LABS: WHITE BLOOD COUNT 11.8 K/mm3 (4.0-10.0)
[2024-11-21 08:34] LABS: POTASSIUM 3.5 mmol/L (3.5-5.1)
[2024-11-21 08:38] LABS: ALBUMIN 2.6 g/dl (3.4-5.0); CALCIUM 8.3 mg/dL (8.5-10.1)
[2024-11-21 08:39] LABS: BLOOD UREA NITROGEN 17.8 mg/dL (7-18)
[2024-11-21 08:42] LABS: CREATININE 1.1 mg/dL (0.55-1.3)
[2024-11-21 08:43] LABS: BILIRUBIN,TOTAL 0.6 mg/dL (0.2-1); TOT PROT 5.1 g/dl (6.4-8.2)
[2024-11-21 10:03] LABS: ANISOCYTOSIS 2+; MACROCYTOSIS 1+
[2024-11-21 10:58] VITALS: BP 141/77; TEMP 97.9
== END 2024-11-21 14:06 | disposition home or self-care (01) | DRG 378 ==
LOC: JER 11:14 → JERBED 11:51 → JICU 16:44 → J7W 11-16 18:34
PROVIDERS: ADMIT Internal Medicine; ATTEND Internal Medicine
PROC: 0DJ08ZZ Inspection of Upper Intestinal Tract, Via Natural or Artificial Opening Endoscopic (ICD-10-PCS; 2024-11-15)
PROC: 0DB68ZX Excision of Stomach, Via Natural or Artificial Opening Endoscopic, Diagnostic (ICD-10-PCS; 2024-11-16)
PROC: 0DB78ZX Excision of Stomach, Pylorus, Via Natural or Artificial Opening Endoscopic, Diagnostic (ICD-10-PCS; 2024-11-16)
PROC: 30233N1 Transfusion of Nonautologous Red Blood Cells into Peripheral Vein, Percutaneous Approach (ICD-10-PCS; principal; 2024-11-17)
DX: K25.0 Acute gastric ulcer with hemorrhage (principal); D62 Acute posthemorrhagic anemia; E87.20 Acidosis, unspecified; N17.9 Acute kidney failure, unspecified; I25.10 Atherosclerotic heart disease of native coronary artery without angina pectoris; E78.5 Hyperlipidemia, unspecified; D50.9 Iron deficiency anemia, unspecified; D72.829 Elevated white blood cell count, unspecified; E87.5 Hyperkalemia; I12.9 Hypertensive chronic kidney disease with stage 1 through stage 4 chronic kidney disease, or unspecified chronic kidney disease; N18.9 Chronic kidney disease, unspecified; K21.9 Gastro-esophageal reflux disease without esophagitis
CPT/HCPCS: 0241U-QW; 36415; 36430; 71045-TC-FY; 74174-TC; 76705-TC; 80048; 80053; 80061; 80076; 81003; 82378; 82550; 82553; 82728; 82941; 82977; 83036; 83540; 83550; 83605; 83690; 83735; 83880; 84100; 84439; 84443; 84484; 85025; 85027; 85045; 85610; 85730; 86140; 86704; 86708; 86803; 86850; 86900; 86901; 86922; 87040; 87086; 87340; 87481; 87517; 88305-TC; 88342-TC; 93005; 93010; 93306-TC; 94760; 99291; P9038; P9058; Q9967

== ENCOUNTER 2025-03-01 07:06 | Day surgery (SDC) | payer OTHER, BC ==
[2025-02-27 12:05] VITALS: BMI 33.4
[2025-03-01 09:23] VITALS: TEMP 98.2
[2025-03-01 10:23] VITALS: BP 114/75; PULSE 62; RESP 20
== END 2025-03-01 10:00 | disposition home or self-care (01) ==
LOC: JASU-ENDO 07:06
PROVIDERS: ATTEND Internal Medicine Gastroenterology
PROC: 0DB78ZX Excision of Stomach, Pylorus, Via Natural or Artificial Opening Endoscopic, Diagnostic (ICD-10-PCS; 2025-03-01)
PROC: 0DB68ZX Excision of Stomach, Via Natural or Artificial Opening Endoscopic, Diagnostic (ICD-10-PCS; 2025-03-01)
PROC: 0DB38ZX Excision of Lower Esophagus, Via Natural or Artificial Opening Endoscopic, Diagnostic (ICD-10-PCS; principal; 2025-03-01 08:45)
DX: K21.00 Gastro-esophageal reflux disease with esophagitis, without bleeding (principal); K29.50 Unspecified chronic gastritis without bleeding; I10 Essential (primary) hypertension
CPT/HCPCS: 88305-TC; 88342-TC